=== PATIENT | male | born 1990 | race Caucasian/White ===

== ENCOUNTER 2018-01-08 13:56 | Emergency (ER) | payer SELFPAY ==
--- NOTE | 2018-01-08 14:31 | ED Physician Chart ---
ED Chief Complaint/HPI - Patient Information Date Seen:: 01/08/18 Time Seen:: 14:14 Chief Complaint:: dog bite History of Present Illness:: this is a 27 yo male who sustained multiple dogs of he face,ear and hands this am. he is now concerned about the bleeding dog bites. Allergies:: Allergies Allergy/AdvReac Type Severity Reaction Status Date / Time amoxicillin Allergy Verified 01/08/18 14:09 morphine Allergy Verified 01/08/18 14:09 Vitals:: Vital Signs - 8 hr 01/08/18 14:10 Temp 98.6 F HR 97 RR 15 BP 108/71 O2 Sat % 98 Historian:: Patient Review:: Nurse's Note Reviewed ED Review of Systems - Review of Systems General/Constitutional: No fever, No chills, No weight loss, No weakness, No diaphoresis, No edema, No loss of appetite Skin: Skin lesions, No rash, No bruising, Other (multiple dog bites of the hands , face and left ear.) Head: No headache, No light-headedness Eyes: No loss of vision, No pain, No diplopia ENT: No earache, No nasal drainage, No sore throat, No tinnitus Neck: No neck pain, No swelling, No thyromegaly, No stiffness, No mass noted Cardio Vascular: No chest pain, No palpitations, No PND, No orthopnea, No edema Pulmonary: No SOB, No cough, No sputum, No wheezing GI: No nausea, No vomiting, No diarrhea, No pain, No melena, No hematochezia, No constipation, No hematemesis G/U: No dysuria, No frequency, No hematuria Musculoskeletal: No bone or joint pain, No back pain, No muscle pain Endocrine: No polyuria, No polydipsia Psychiatric: No prior psych history, No depression, No anxiety, No suicidal ideation Hematopoietic: No bruising, No lymphadenopathy Allergic/Immuno: No urticaria, No angioedema Neurological: No syncope, No focal symptoms, No weakness, No paresthesia, No headache, No seizure, No dizziness, No confusion, No vertigo ED Past Medical History - Past Medical History Obtainable: Yes Past Medical History: No significant medical hx Family History: None Social History: Non Smoker, No Alcohol, No Drug Use, Employed Surgical History: None Psychiatricy History: None Medication: Reviewed Family Medical History - Family Member Mother History Unknown: Yes Hx Family Cancer: No Hx Family Coronary Artery Disease: No Hx Family Congestive Heart Failure: No Hx Family Hypertension: No Hx Family Diabetes: No Hx Family Seizures: No Hx Family AIDS: No Hx Family HIV: No Hx Family Hepatitis: No Hx Family Tuberculosis: No ED Physical Exam - Physical Examination General/Constitutional: Awake, Well-developed, well-nourished, Alert, No distress, GCS 15, Non-toxic appearing, Ambulatory Head: Atraumatic Eyes: Lids, conjuctiva normal, PERRL, EOMI Skin: Nl inspection, No rash, No skin lesions, No ecchymosis, Well hydrated, No lymphadenopathy ENMT: Nasal exam nl, Lips, teeth, gums nl Other ENMT comments:: left outer ear lobe has a 1 cm laceration noted. Neck: Nontender, Full ROM w/o pain, No JVD, No nuchal rigidity, No bruit, No mass, No stridor Respiratory: Nl effort/Exclusion, Clear to Auscultation, No Wheeze/Rhonchi/Rales Cardio Vascular: RRR, No murmur, gallop, rubs, NL S1 S2 GI: No tenderness/rebounding/guarding, No organomegaly, No hernia, Normal BS's, Nondistended, No mass/bruits, No McBurney tenderness : No CVA tenderness Extremities: No tenderness or effusion, Full ROM, normal strength in all extremities, No edema, Normal digits & nails Other Extremities comments:: both hands have multiple dog bites Neuro/Psych: Alert/oriented, DTR's symmetric, Normal sensory exam, Normal motor strength, Judgement/insight normal, Mood normal, Normal gait, No focal deficits Misc: Normal back, No paraspinal tenderness ED Assessment - Assessment General Assessment: multiple dog bites over the hands and left ear - Procedures Informed Consent: Procedure/risk/benefits explained by MD: Yes Location:: left ear Laceration Type:: Simple Wound Length: 2 cm Prep/Irrigation:: h2o2 betadine Inspection: No dirt/debris, Bases & margins visual Local Anesthetic:: xylocaine 1% 2cc Suture Type and #: 3x5-0 nylon ED Septic Shock - . Is Septic Shock (SBP<90, OR Lactate>4 mmol\L) present?: No - <6hrs of presentation: Vital Signs: Vital Signs - 8 hr 10/13/18 14:10 Temp 98.6 F HR 97 RR 15 BP 108/71 O2 Sat % 98 ED Reassessment (Disposition) - Reassessment Reassessment Condition:: Improved - Diagnosis Diagnosis:: dog bites left ear laceration
== END 2018-01-08 15:02 | disposition home or self-care (01) ==
LOC: ER 13:56
DX: S01.312A Laceration without foreign body of left ear, initial encounter (principal); S01.85XA Open bite of other part of head, initial encounter; S61.451A Open bite of right hand, initial encounter; S61.452A Open bite of left hand, initial encounter; Z88.0 Allergy status to penicillin; Z88.5 Allergy status to narcotic agent; W54.0XXA Bitten by dog, initial encounter; Y93.89 Activity, other specified; Y92.89 Other specified places as the place of occurrence of the external cause; Y99.8 Other external cause status
CPT/HCPCS: 12011; Z7502